=== PATIENT | female | born 1950 | race Caucasian/White ===

== ENCOUNTER → 2016-06-08 | Outpatient (CLI) | payer MEDICARE | END | disposition home or self-care (01) | LOC: PCVCIMAG 10:20 | PROVIDERS: ATTEND Internal Medicine Cardiovascular Disease | DX: I25.10 Atherosclerotic heart disease of native coronary artery without angina pectoris (principal); I10 Essential (primary) hypertension; E78.5 Hyperlipidemia, unspecified; I73.9 Peripheral vascular disease, unspecified; E04.1 Nontoxic single thyroid nodule; I35.0 Nonrheumatic aortic (valve) stenosis; Z95.5 Presence of coronary angioplasty implant and graft | CPT/HCPCS: 80061; 93005; 93306; G0463; 90471; 96365; 96375; 99284-25 ==

== ENCOUNTER → 2017-01-18 | Outpatient (CLI) | payer MEDICARE ==
--- NOTE | 2017-01-18 13:11 | PCVCIMAG ---
APPROVED REPORT Exam: Stress Echocardiogram Indication: Hyperlipidemia, CAD, Stent, Aortic Valve Disease Patient Location: Echo lab Stress Nurse: Mi Lamb RN Status: routine Ht: 5 ft 4 in HR: 75 bpm BP: 160/90 mmHg Rhythm: NSR Medical History Medical History: CAD s/p stent Procedure The patient underwent an Exercise Stress Test using the Simone Protocol. Blood pressure, heart rate, and EKG were monitored. An Echocardiogram was performed by control systems technician in four stages in quad fashion. At peak stress, four selected images were obtained and placed side by side with resting images for comparison. Stress Test Details Stress Test: Exercise stress testing was performed using a Simone protocol. HR Resting HR: 75 bpmMax Heart Rate (APMHR): 153 bpm Max HR Achieved: 137 bpmTarget HR (85% APMHR): 130 bpm % of APMHR: 89 HR response to stress: Normal HR response to stress BP Resting BP: 160/90 mmHg Max BP: 200/90 mmHg ECG Resting ECG: Sinus Rhythm Stress ECG: Sinus Rhythm Clinical Reason for Termination: Maximal effort Exercise duration: 7 min sec Highest Stage Achieved: Stage 3: 3.4 mph at 14% grade. Exercise capacity: 10.10 METs Pre-Stress Echo The resting Echocardiogram showed normal left ventricular contractility with an estimated Ejection Fraction of about 55-60%. Normal wall motion in all segments on baseline images. Post-Stress Echo The stress Echocardiogram showed normal left ventricular contractility with an estimated Ejection Fraction of about 60-65%. Normal augmentation of wall motion in all segments on post stress images. Conclusion Clinical Response: Non-ischemic Exercise Capacity: Average Stress ECG Response: Non-ischemic Stress Echo Images: Non-ischemic The left ventricle is normal in size and wall thickness in both the rest and stress images. Aortic Valve Area is 1.4cm Peak gradient of 27mhg. Mean gradient of 16mmhg. Other Information Study Quality: Good <Conclusion> The left ventricle is normal in size and wall thickness in both the rest and stress images. Aortic Valve Area is 1.4cm Peak gradient of 27mhg. Mean gradient of 16mmhg.
== END | disposition home or self-care (01) ==
LOC: PCVCIMAG 09:50
PROVIDERS: ATTEND Internal Medicine Cardiovascular Disease
DX: I25.10 Atherosclerotic heart disease of native coronary artery without angina pectoris (principal); E78.5 Hyperlipidemia, unspecified; I35.8 Other nonrheumatic aortic valve disorders; I10 Essential (primary) hypertension; Z95.5 Presence of coronary angioplasty implant and graft
CPT/HCPCS: 93325; 93351

== ENCOUNTER → 2017-09-28 | Outpatient (CLI) | payer MEDICARE | END | disposition home or self-care (01) | LOC: PCVCIMAG 10:24 | DX: I25.10 Atherosclerotic heart disease of native coronary artery without angina pectoris (principal); I73.9 Peripheral vascular disease, unspecified; I10 Essential (primary) hypertension; E04.1 Nontoxic single thyroid nodule; E78.00 Pure hypercholesterolemia, unspecified; I77.9 Disorder of arteries and arterioles, unspecified; R07.89 Other chest pain; F17.210 Nicotine dependence, cigarettes, uncomplicated; Z79.82 Long term (current) use of aspirin | CPT/HCPCS: 36415; 76536; 80061; 93005; 93978; G0463 ==

== ENCOUNTER → 2017-10-10 | Outpatient (CLI) | payer MEDICARE ==
[~2017-10-10] MED LIST: CLOPIDOGREL BISULFATE 75 MG TABLET; DIAZEPAM 10 MG TABLET.; EPTIFIBATIDE BOLUS 2,000 MCG/ML 10ML VIAL. IV; HEPARIN SODIUM 5,000 UNIT/ML VIAL for PCVC.; HEPARIN for ARTERIAL LINE 1,500 ML; IODIXANOL 270 MG/ML 100 ML VIAL.; IOHEXOL 350 MG/ML 100 ML VIAL.; IV NORMAL SALINE 500ML BAG 500 ML; LIDOCAINE 1%/EPI 1:100,000 20 ML VIAL.; MIDAZOLAM HCL/PF 2 MG/2 ML VIAL.; WATER FOR INJECTION,STERILE 20 ML VIAL. IJ; ceFAZolin SODIUM 1 GM VIAL; fentaNYL PF VIAL 100 MCG/2 ML VIAL
== END ==
LOC: PCVCINTER 09:29
DX: I77.1 Stricture of artery (principal); I70.0 Atherosclerosis of aorta; I70.1 Atherosclerosis of renal artery; I73.9 Peripheral vascular disease, unspecified; E78.00 Pure hypercholesterolemia, unspecified; I10 Essential (primary) hypertension
CPT/HCPCS: 36252; 37221; 75716; 76937; 93458; 99152; 99153; C1725; C1751; C1760; C1769; C1876; C1894; J0690; J1327; J1644; J2250; J3010; J3490; J7040; Q9967

== ENCOUNTER → 2018-05-28 | Outpatient (CLI) | payer MEDICARE ==
--- NOTE | 2018-05-28 17:46 | PCVCIMAG ---
EXAM: NONINVASIVE ARTERIAL EXAMINATION OF BOTH LOWER EXTREMITIES INCLUDING PRE AND POST EXERCISE PRESSURE MEASUREMENTS AND DOPPLER WAVEFORMS INDICATION: Peripheral Arterial Disease. Leg pain. FINDINGS: Right Brachial: 150 mm Hg. Right Dorsalis Pedis: 136 mm Hg. Right Posterior Tibial: 142 mm Hg. Right KEON = 0.95. Left Brachial: 148 mm Hg. Left Dorsalis Pedis: 126 mm Hg. Left Posterior Tibial: 134 mm Hg. Left KEON = 0.89. Post Exercise: Right Brachial 150 mm Hg. Right Posterior Tibial: 136 mm Hg. Left Posterior Tibial: 132 mm Hg. Right KEON = 0.91. Left KEON = 0.88. IMPRESSION: No resting ischemia in the right lower extremity. No exercise induced ischemia in the right lower extremity. No resting ischemia in the left lower extremity. No exercise induced ischemia in the left lower extremity. LOC:[id number]
--- NOTE | 2018-05-28 17:49 | PCVCIMAG ---
EXAM: AORTOILIAC DUPLEX INDICATION: Peripheral arterial disease FINDINGS: AORTA: Suprarenal aorta measures maximum diameter of 2.7 cm. There is not a fusiform infrarenal aortic aneurysm. The infrarenal aorta measures maximum diameter of 1.3 cm. No aortic stenosis. RIGHT COMMON ILIAC ARTERY: Maximum diameter is 1.0 cm. No significant stenosis. RIGHT EXTERNAL ILIAC ARTERY: No significant stenosis. LEFT COMMON ILIAC ARTERY: Maximum diameter is 0.9 cm. No significant stenosis. LEFT EXTERNAL ILIAC ARTERY: Mild stenosis mid vessel. IMPRESSION: No abdominal aortic aneurysm. No significant aortoiliac stenosis seen. Mild stenosis mid left external iliac artery within prior stent not felt be flow-limiting. LOC:[id number]
== END | disposition home or self-care (01) ==
LOC: PCVCIMAG 13:27
PROVIDERS: ATTEND Internal Medicine Cardiovascular Disease
DX: I73.9 Peripheral vascular disease, unspecified (principal); I25.10 Atherosclerotic heart disease of native coronary artery without angina pectoris; I77.1 Stricture of artery; I35.0 Nonrheumatic aortic (valve) stenosis; E04.1 Nontoxic single thyroid nodule; F17.210 Nicotine dependence, cigarettes, uncomplicated; E78.5 Hyperlipidemia, unspecified
CPT/HCPCS: 36415; 80061; 93005; 93924; 93978; G0463

== ENCOUNTER → 2018-10-04 | Outpatient (CLI) | payer MEDICARE ==
--- NOTE | 2018-10-07 10:02 | PCVCIMAG ---
APPROVED REPORT Study performed: 10/04/2018 10:28:02 Exam: Stress Echocardiogram Indication: CAD s/p PCI, pre op clearance, mild aortic stenosis Patient Location: Echo lab Stress Nurse: Francheska Duque RN Status: routine Ht: 5 ft 3 in HR: 74 bpm BP: 124/82 mmHg Rhythm: NSR Procedure The patient underwent an Exercise Stress Test using the Simone Protocol. Blood pressure, heart rate, and EKG were monitored. An Echocardiogram was performed by semiconductor lab technician in four stages in quad fashion. At peak stress, four selected images were obtained and placed side by side with resting images for comparison. Stress Test Details Stress Test: Exercise stress testing was performed using a Simone protocol. HR Resting HR: 74 bpmMax Heart Rate (APMHR): 152 bpm Max HR Achieved: 141 bpmTarget HR (85% APMHR): 129 bpm % of APMHR: 92 Recovery HR: 88 bpm HR response to stress: Normal HR response to stress BP Resting BP: 124/82 mmHg Max BP: 174/80 mmHg Recovery BP: 142/78 mmHg BP response to stress: Normal blood pressure response to stress. ECG Resting ECG: Sinus Rhythm Stress ECG: Sinus Rhythm ST Change: Normal Arrhythmia: occasional PACs Recovery ECG: Sinus Rhythm Recovery ST Change: Normal Recovery Arrhythmia: None Clinical Reason for Termination: Maximal effort Stress Symptoms: Dyspnea, Leg Fatigue Exercise duration: 6 min 37 sec Highest Stage Achieved: Stage 3: 3.4 mph at 14% grade. Exercise capacity: 8.9 METs Overall Exercise Capacity for Age: Normal Scale: Sedentary Angina Score: None Pre-Stress Echo The resting Echocardiogram showed normal left ventricular contractility with an estimated Ejection Fraction of about >55%. Normal wall motion in all segments on baseline images. Post-Stress Echo The stress Echocardiogram showed normal left ventricular contractility with an estimated Ejection Fraction of about 65%. Normal augmentation of wall motion in all segments on post stress images. Clinical No clinical or ECG evidence for ischemia. Conclusion Clinical Response: Non-ischemic Exercise Capacity: Average Stress ECG Response: Non-ischemic Stress Echo Images: Non-ischemic The left ventricle is normal in size and wall thickness in both the rest and stress images. Mild aortic stenosis with CARLOS of 1.8 cm2, mean gradient 14 mmHg and peak gradient of 30 mmHg. Other Information Study Quality: Adequate <Conclusion> The left ventricle is normal in size and wall thickness in both the rest and stress images. Mild aortic stenosis with CARLOS of 1.8 cm2, mean gradient 14 mmHg and peak gradient of 30 mmHg.
== END | disposition home or self-care (01) ==
LOC: PCVCIMAG 10:03
PROVIDERS: ATTEND Internal Medicine Cardiovascular Disease
DX: Z01.810 Encounter for preprocedural cardiovascular examination (principal); I35.0 Nonrheumatic aortic (valve) stenosis; I25.10 Atherosclerotic heart disease of native coronary artery without angina pectoris; I10 Essential (primary) hypertension; F17.200 Nicotine dependence, unspecified, uncomplicated; E78.5 Hyperlipidemia, unspecified
CPT/HCPCS: 93325; 93351

== ENCOUNTER → 2019-01-22 | Outpatient (CLI) | payer MEDICARE ==
--- NOTE | 2019-01-22 18:27 | PCVCIMAG ---
EXAM: AORTOILIAC DUPLEX INDICATION: Peripheral arterial disease FINDINGS: AORTA: Suprarenal aorta measures maximum diameter of 2.3 cm. There is not a fusiform infrarenal aortic aneurysm. The infrarenal aorta measures maximum diameter of 2.4 cm. No aortic stenosis. RIGHT COMMON ILIAC ARTERY: Maximum diameter is 1.2 cm. No significant stenosis. RIGHT EXTERNAL ILIAC ARTERY: No significant stenosis. LEFT COMMON ILIAC ARTERY: Maximum diameter is 1.2 cm. No significant stenosis. LEFT EXTERNAL ILIAC ARTERY: Mild restenosis. IMPRESSION: No abdominal aortic aneurysm. No aortoiliac stenosis seen. Mild stenosis mid left external iliac artery within prior stent not felt be flow-limiting. No change since May 2018. LOC:[id number]
--- NOTE | 2019-01-22 18:34 | PCVCIMAG ---
EXAM: ULTRASOUND OF THE THYROID INDICATION: Thyroid nodules. FINDINGS: The right thyroid lobe measures 2.4 x 2.5 x 6.0 cm. The left thyroid lobe measures 2.2 x 2.3 x 5.7 cm. 0.9 x 1.0 x 1.7 cm solid nodule upper pole right thyroid lobe compares to 1.4 cm in maximum dimensions on September 2017 study. Further evaluation by ENT may be of value. 0.4 x 0.6 x 0.7 cm partially solid/partially cystic nodule in the left side of the thyroid isthmus has also shown mild increase in size and appears more complex today compared to the previous study when it appeared cystic. IMPRESSION: Right upper lobe solid nodule has shown increase in size since 2018 study and is therefore indeterminate. Complex partially solid/partially cystic 0.7 cm nodule left thyroid isthmus also increased. LOC:[id number]
== END | disposition home or self-care (01) ==
LOC: PCVCIMAG 08:17
PROVIDERS: ATTEND Internal Medicine Cardiovascular Disease
DX: I73.9 Peripheral vascular disease, unspecified (principal); E04.2 Nontoxic multinodular goiter; I25.10 Atherosclerotic heart disease of native coronary artery without angina pectoris; I70.8 Atherosclerosis of other arteries; E78.00 Pure hypercholesterolemia, unspecified; I35.0 Nonrheumatic aortic (valve) stenosis; I10 Essential (primary) hypertension; I77.1 Stricture of artery; C18.9 Malignant neoplasm of colon, unspecified; E78.5 Hyperlipidemia, unspecified; F17.200 Nicotine dependence, unspecified, uncomplicated; R91.1 Solitary pulmonary nodule; F17.210 Nicotine dependence, cigarettes, uncomplicated; Z95.828 Presence of other vascular implants and grafts; Z79.899 Other long term (current) drug therapy; Z79.82 Long term (current) use of aspirin
CPT/HCPCS: 36415; 76536; 80061; 93005; 93978; G0463